=== PATIENT | female | born 1930 | race American Indian/Alaskan Native ===

== ENCOUNTER 2018-02-23 18:45 | Emergency (ER) | payer SELFPAY ==
[2018-02-23] MEDS ORDERED: VANCOMYCIN 1,000 MG in NACL 0.9% 500 ML 500 ML IV ONE (18:54)
[2018-02-23] MEDS ORDERED: NACL 0.9% 1000 ML IV ONE (18:54)
[2018-02-23] MEDS ORDERED: VASELINE LIP THERAPY TP PRN (18:56)
[2018-02-23] MEDS ORDERED: ARTIFICIAL TEARS OPHTH OINT OU PRN (18:56)
[2018-02-23] MEDS ORDERED: ATIVAN IV PRN (18:56)
[2018-02-23] MEDS ORDERED: AMIDATE IV ONE ×2 (18:58→23:00)
[2018-02-23] MEDS ORDERED: TYLENOL PR ONE (18:58)
[2018-02-23] MEDS ORDERED: KEPPRA 1,000 MG/NS 0.75% 100ML 1,000 MG/100 ML BAG IV ONE (18:58)
[2018-02-23] MEDS ORDERED: XYLOCAINE CARDIAC IV ONE ×2 (18:58→23:00)
[2018-02-23] MEDS ORDERED: ZEMURON IV ONE ×2 (18:58→23:00)
--- NOTE | 2018-02-23 18:59 | Emergency Department Report ---
ED General Adult HPI - General Chief complaint: Dyspnea/Respdistress Stated complaint: PEACE Time Seen by Provider: 02/23/18 18:53 Source: EMS (verbal report received from EMS.ems notes not available at time of chart dictation), RN notes reviewed Mode of arrival: Stretcher Limitations: Other - History of Present Illness Initial comments: This is an 87-year-old female who was previously unknown to this provider, who is brought to the hospital by EMS for respiratory failure and seizures. EMS and the patient's subsequently indicated that the patient had no history of seizures. Patient was found to be seizing. She was seizing for at least 20 minutes. EMS reported that they terminate the seizures initially with some Versed. Upon arrival to the ER, the patient is altered, obtunded, has a GCS of 3, pupils are midpoint and not reactive to light has normal Accu-Chek. The patient is intubated for airway protection under the presumption that she is in a status epilepticus algorithm. Postintubation management demonstrated tachycardia, A. fib with RVR, acute renal failure, lactic acidosis and a fever of 100.9. There is no obvious etiologic source of fever demonstrated. The patient was empirically treated with 1 g of Keppra, guarding for hypertensive urgency with a blood pressure in the 200s, and treated empirically for community-acquired meningitis with vancomycin, ceftriaxone, Decadron and acyclovir. Patient was found to have an elevated INR of 1.59 and elevated prothrombin time. Given these parameters, even though the patient is not on systemic anticoagulation as per her , and LP was not performed. The patient is currently intubated and sedated on a fentanyl drip, and heart rate has decreased to 89. Lactic acidosis improved from 8 to 3 and change. There is also some renal insufficiency. This hospital does not have neurology, neurosurgery, or neurology critical care available for consultation. Therefore the patient will be transferred for definitive management and care. This hospital also cannot provide continuous EEG monitoring. The case was discussed with the physician, Dr. Brannon, who is the neurology critical care physician at [facility], and she has accepted the patient as a transfer. -: Sudden Consistency: constant Improves with: none Worsens with: none Associated Symptoms: other (patient is nonverbal and cannot describe other symptoms) - Related Data Allergies Allergy/AdvReac Type Severity Reaction Status Date / Time codeine Allergy Unknown Verified 02/23/18 18:52 ED Review of Systems ROS: Stated complaint: PEACE Other details as noted in HPI Comment: Unobtainable due to pts medical conditions ED Past Medical Hx - Past Medical History Previous Medical History?: Yes Hx Hypertension: Yes Additional medical history: bypass. afib - Social History Smoking Status: Unknown if ever smoked ED Physical Exam - General Limitations: Altered Mental Status, Physical Limitation, Other General appearance: obtunded - Head Head exam: Present: atraumatic, normocephalic - Eye Eye exam: Present: normal appearance, other (pupils are midpoint and poorly reactive to light) - ENT ENT exam: Present: mucous membranes dry - Neck Neck exam: Present: normal inspection. Absent: tenderness, meningismus - Respiratory Respiratory exam: Absent: respiratory distress, wheezes, rales - Cardiovascular Cardiovascular Exam: Present: tachycardia, irregular rhythm, normal heart sounds. Absent: systolic murmur, diastolic murmur, rubs, gallop - GI/Abdominal GI/Abdominal exam: Present: soft, normal bowel sounds. Absent: distended, tenderness, guarding, rebound, rigid, pulsatile mass - Extremities Exam Extremities exam: Present: normal inspection. Absent: tenderness, joint swelling, calf tenderness - Back Exam Back exam: Present: normal inspection. Absent: CVA tenderness (R), paraspinal tenderness, vertebral tenderness - Neurological Exam Neurological exam: Present: altered - Psychiatric Psychiatric exam: Present: other (patient is nonverbal) - Skin Skin exam: Present: warm, dry, intact, normal color. Absent: rash ED Course Vital Signs 02/23/18 02/23/18 02/23/18 18:53 20:06 20:33 Temperature 100.9 F H Pulse Rate 131 H 128 H 86 Respiratory Rate Blood Pressure 102/67 160/103 Blood Pressure 108/73 [Left] O2 Sat by Pulse 100 100 Oximetry 02/23/18 02/23/18 02/23/18 21:05 21:16 21:30 Temperature Pulse Rate 94 H 80 80 Respiratory 16 17 17 Rate Blood Pressure 229/97 229/97 219/112 Blood Pressure [Left] O2 Sat by Pulse Oximetry 02/23/18 02/23/18 02/23/18 21:46 22:00 22:16 Temperature Pulse Rate 76 77 69 Respiratory 17 16 18 Rate Blood Pressure 219/112 153/74 130/66 Blood Pressure [Left] O2 Sat by Pulse 100 100 Oximetry 02/23/18 02/23/18 02/23/18 22:30 22:46 23:00 Temperature Pulse Rate 71 73 75 Respiratory 17 17 16 Rate Blood Pressure 118/68 135/70 Blood Pressure [Left] O2 Sat by Pulse 100 100 100 Oximetry 02/23/18 02/23/18 23:16 23:30 Temperature Pulse Rate 76 73 Respiratory 18 16 Rate Blood Pressure 142/71 132/67 Blood Pressure [Left] O2 Sat by Pulse 100 100 Oximetry - Intubation Time Out Performed: Yes Sedative: Etomidate Mg Given: 20 Paralytic: Rocuronium Mg Given: 100 Laryngoscope: Noé Size: 3 ET Tube Size: 7.5 Tube Secured Location: teeth Tube Placement Confirmation: visualized tube passing t, equal breath sounds bilat, no breath sounds over epi, confirmation by capnometr Patient Tolerated Procedure: well Intubation Complications: none ED Medical Decision Making - Lab Data Result diagrams: 02/23/18 19:15 02/23/18 19:15 Vital Signs 02/23/18 02/23/18 02/23/18 18:53 20:06 20:33 Temperature 100.9 F H Pulse Rate 131 H 128 H 86 Respiratory Rate Blood Pressure 102/67 160/103 Blood Pressure 108/73 [Left] O2 Sat by Pulse 100 100 Oximetry 02/23/18 02/23/18 02/23/18 21:05 21:16 21:30 Temperature Pulse Rate 94 H 80 80 Respiratory 16 17 17 Rate Blood Pressure 229/97 229/97 219/112 Blood Pressure [Left] O2 Sat by Pulse Oximetry 02/23/18 02/23/18 02/23/18 21:46 22:00 22:16 Temperature Pulse Rate 76 77 69 Respiratory 17 16 18 Rate Blood Pressure 219/112 153/74 130/66 Blood Pressure [Left] O2 Sat by Pulse 100 100 Oximetry 02/23/18 22:30 Temperature Pulse Rate 71 Respiratory 17 Rate Blood Pressure 118/68 Blood Pressure [Left] O2 Sat by Pulse 100 Oximetry Lab Results 02/23/18 02/23/18 02/23/18 Range/Units 19:15 19:15 19:15 WBC 8.2 (4.5-11.0) K/mm3 RBC 3.66 (3.65-5.03) M/mm3 Hgb 9.8 L (10.1-14.3) gm/dl Hct 32.6 (30.3-42.9) % MCV 89 (79-97) fl MCH 27 L (28-32) pg MCHC 30 (30-34) % RDW 17.0 H (13.2-15.2) % Plt Count 222 (140-440) K/mm3 Lymph % (Auto) Superintendent Operating Dukes % (Auto) Superintendent Operating Eos % (Auto) Superintendent Operating Baso % (Auto) Superintendent Operating Lymph # Superintendent Operating Dukes # Superintendent Operating Eos # Superintendent Operating Baso # Superintendent Operating Seg Neutrophils % Superintendent Operating Seg Neutrophils # Superintendent Operating PT 19.9 H (12.2-14.9) Sec. INR 1.59 H (0.87-1.13) APTT 34.1 (24.2-36.6) Sec. Thrombin Time 15.5 (15.1-19.6) Sec. POC ABG pH (7.35-7.45) POC ABG pCO2 (35-45) POC ABG pO2 (80-105) POC ABG HCO3 POC ABG Total CO2 POC ABG O2 Sat POC ABG Base Excess FiO2 % Sodium (137-145) mmol/L Potassium (3.6-5.0) mmol/L Chloride (98-107) mmol/L Carbon Dioxide (22-30) mmol/L Anion Gap mmol/L BUN (7-17) mg/dL Creatinine (0.7-1.2) mg/dL Estimated GFR ml/min BUN/Creatinine Ratio % Glucose (65-100) mg/dL Lactic Acid (0.7-2.0) mmol/L Calcium (8.4-10.2) mg/dL Total Bilirubin (0.1-1.2) mg/dL AST (5-40) units/L ALT (7-56) units/L Alkaline Phosphatase (35-129) units/L Total Creatine Kinase 97 (30-135) units/L CK-MB (CK-2) 7.2 H (0.0-4.0) ng/mL CK-MB (CK-2) Rel Index 7.4 H (0-4) Troponin T 0.058 H (0.00-0.029) ng/mL Total Protein (6.3-8.2) g/dL Albumin (3.9-5) g/dL Albumin/Globulin Ratio % Triglycerides 77 (2-149) mg/dL Cholesterol 202 H (50-199) mg/dL LDL Cholesterol Direct 116 (50-130) mg/dL HDL Cholesterol 86 H (40-59) mg/dL Cholesterol/HDL Ratio 2.34 % Urine Color (Yellow) Urine Turbidity (Clear) Urine pH (5.0-7.0) Ur Specific Winn (1.003-1.030) Urine Protein (Negative) mg/dL Urine Glucose (UA) (Negative) mg/dL Urine Ketones (Negative) mg/dL Urine Blood (Negative) Urine Nitrite (Negative) Urine Bilirubin (Negative) Urine Urobilinogen (<2.0) mg/dL Ur Leukocyte Esterase (Negative) Urine WBC (Auto) (0.0-6.0) /HPF Urine RBC (Auto) (0.0-6.0) /HPF U Epithel Cells (Auto) (0-13.0) /HPF Urine Bacteria (Auto) (Negative) /HPF Urine Mucus /HPF Blood Type Antibody Screen 02/23/18 02/23/18 02/23/18 Range/Units 19:15 19:15 19:15 WBC (4.5-11.0) K/mm3 RBC (3.65-5.03) M/mm3 Hgb (10.1-14.3) gm/dl Hct (30.3-42.9) % MCV (79-97) fl MCH (28-32) pg MCHC (30-34) % RDW (13.2-15.2) % Plt Count (140-440) K/mm3 Lymph % (Auto) Dukes % (Auto) Eos % (Auto) Baso % (Auto) Lymph # Dukes # Eos # Baso # Seg Neutrophils % Seg Neutrophils # PT (12.2-14.9) Sec. INR (0.87-1.13) APTT (24.2-36.6) Sec. Thrombin Time (15.1-19.6) Sec. POC ABG pH (7.35-7.45) POC ABG pCO2 (35-45) POC ABG pO2 (80-105) POC ABG HCO3 POC ABG Total CO2 POC ABG O2 Sat POC ABG Base Excess FiO2 % Sodium 137 (137-145) mmol/L Potassium 4.4 (3.6-5.0) mmol/L Chloride 102.0 (98-107) mmol/L Carbon Dioxide 16 L (22-30) mmol/L Anion Gap 23 mmol/L BUN 17 (7-17) mg/dL Creatinine 2.1 H (0.7-1.2) mg/dL Estimated GFR 27 ml/min BUN/Creatinine Ratio 8 % Glucose 159 H (65-100) mg/dL Lactic Acid 8.70 H* (0.7-2.0) mmol/L Calcium 8.3 L (8.4-10.2) mg/dL Total Bilirubin 0.40 (0.1-1.2) mg/dL AST 18 (5-40) units/L ALT 8 (7-56) units/L Alkaline Phosphatase 100 (35-129) units/L Total Creatine Kinase 113 (30-135) units/L CK-MB (CK-2) (0.0-4.0) ng/mL CK-MB (CK-2) Rel Index (0-4) Troponin T (0.00-0.029) ng/mL Total Protein 5.7 L (6.3-8.2) g/dL Albumin 2.8 L (3.9-5) g/dL Albumin/Globulin Ratio 1.0 % Triglycerides (2-149) mg/dL Cholesterol (50-199) mg/dL LDL Cholesterol Direct (50-130) mg/dL HDL Cholesterol (40-59) mg/dL Cholesterol/HDL Ratio % Urine Color (Yellow) Urine Turbidity (Clear) Urine pH (5.0-7.0) Ur Specific Winn (1.003-1.030) Urine Protein (Negative) mg/dL Urine Glucose (UA) (Negative) mg/dL Urine Ketones (Negative) mg/dL Urine Blood (Negative) Urine Nitrite (Negative) Urine Bilirubin (Negative) Urine Urobilinogen (<2.0) mg/dL Ur Leukocyte Esterase (Negative) Urine WBC (Auto) (0.0-6.0) /HPF Urine RBC (Auto) (0.0-6.0) /HPF U Epithel Cells (Auto) (0-13.0) /HPF Urine Bacteria (Auto) (Negative) /HPF Urine Mucus /HPF Blood Type A NEGATIVE Antibody Screen Negative 02/23/18 02/23/18 02/23/18 Range/Units 19:47 19:50 21:38 WBC (4.5-11.0) K/mm3 RBC (3.65-5.03) M/mm3 Hgb (10.1-14.3) gm/dl Hct (30.3-42.9) % MCV (79-97) fl MCH (28-32) pg MCHC (30-34) % RDW (13.2-15.2) % Plt Count (140-440) K/mm3 Lymph % (Auto) Dukes % (Auto) Eos % (Auto) Baso % (Auto) Lymph # Dukes # Eos # Baso # Seg Neutrophils % Seg Neutrophils # PT (12.2-14.9) Sec. INR (0.87-1.13) APTT (24.2-36.6) Sec. Thrombin Time (15.1-19.6) Sec. POC ABG pH 7.444 (7.35-7.45) POC ABG pCO2 29.6 L (35-45) POC ABG pO2 488 H (80-105) POC ABG HCO3 20.3 POC ABG Total CO2 21 POC ABG O2 Sat 100 POC ABG Base Excess -4 FiO2 100 % Sodium (137-145) mmol/L Potassium (3.6-5.0) mmol/L Chloride (98-107) mmol/L Carbon Dioxide (22-30) mmol/L Anion Gap mmol/L BUN (7-17) mg/dL Creatinine (0.7-1.2) mg/dL Estimated GFR ml/min BUN/Creatinine Ratio % Glucose (65-100) mg/dL Lactic Acid 3.90 H* (0.7-2.0) mmol/L Calcium (8.4-10.2) mg/dL Total Bilirubin (0.1-1.2) mg/dL AST (5-40) units/L ALT (7-56) units/L Alkaline Phosphatase (35-129) units/L Total Creatine Kinase (30-135) units/L CK-MB (CK-2) (0.0-4.0) ng/mL CK-MB (CK-2) Rel Index (0-4) Troponin T (0.00-0.029) ng/mL Total Protein (6.3-8.2) g/dL Albumin (3.9-5) g/dL Albumin/Globulin Ratio % Triglycerides (2-149) mg/dL Cholesterol (50-199) mg/dL LDL Cholesterol Direct (50-130) mg/dL HDL Cholesterol (40-59) mg/dL Cholesterol/HDL Ratio % Urine Color Yellow (Yellow) Urine Turbidity Clear (Clear) Urine pH 5.0 (5.0-7.0) Ur Specific Winn 1.016 (1.003-1.030) Urine Protein 30 mg/dl (Negative) mg/dL Urine Glucose (UA) Neg (Negative) mg/dL Urine Ketones Neg (Negative) mg/dL Urine Blood Neg (Negative) Urine Nitrite Neg (Negative) Urine Bilirubin Neg (Negative) Urine Urobilinogen < 2.0 (<2.0) mg/dL Ur Leukocyte Esterase Tr (Negative) Urine WBC (Auto) 5.0 (0.0-6.0) /HPF Urine RBC (Auto) 1.0 (0.0-6.0) /HPF U Epithel Cells (Auto) < 1.0 (0-13.0) /HPF Urine Bacteria (Auto) 2+ (Negative) /HPF Urine Mucus Few /HPF Blood Type Antibody Screen - EKG Data -: EKG Interpreted by Me Rate: tachycardia - EKG Data When compared to previous EKG there are: previous EKG unavailable 02/23/18 23:16 Atrial fibrillation, rapid ventricular response, tachycardic, left axis deviation, QTC prolonged, not a stemi - Radiology Data Radiology results: report reviewed, image reviewed - Medical Decision Making Differential diagnosis, including but not limited to: Status epilepticus, meningitis, hypertensive emergency, renal insufficiency, pneumonia, urinary tract infection Assessment and plan: 87-year-old female with acute febrile illness, lactic acidosis, and the status epilepticus abdomen rhythm with acute renal insufficiency. I suspect that the patient had a seizure which contributed to her lactic acidosis and fever. We cannot perform a spinal tap given INR and elevated prothrombin time. Patient has an emergency medical condition that cannot be definitively managed at this hospital, and requires transfer for definitive care. I explained this extensively to the patient's family. Critical Care Time: Yes Critical care time in (mins) excluding proc time.: 45 Critical care attestation.: If time is entered above; I have spent that time in minutes in the direct care of this critically ill patient, excluding procedure time. ED Disposition Clinical Impression: Status epilepticus, Systemic inflammatory response syndrome, Acute renal insufficiency Disposition: [id number]/[id number]-TRM GEN HOSP IP Is pt being admited?: No Does the pt Need Aspirin: No Condition: Critical Referrals: PRIMARY CARE, [Primary Care Provider] - 3-5 Days
[2018-02-23] MEDS ORDERED: NACL 0.9% 500 ML IV SCH (19:00)
[2018-02-23] MEDS ORDERED: fentaNYL DRIP Premix 2,000 MCG/100 ML BAG IV SCH (19:00)
--- NOTE | 2018-02-23 19:36 | XRay Report ---
FINAL REPORT EXAM: XR CHEST 1V AP HISTORY: ETT placement TECHNIQUE: AP portable view of the chest PRIORS: None. FINDINGS: Lines, tubes, and devices: Median sternotomy wires, and a defibrillator pad overlying the right chest are noted. An endotracheal tube terminates 4 cm above the sally. Lungs and pleura: Trachea is normal in position. Lungs are clear of infiltrate, pleural effusion, vascular congestion, or pneumothorax. Cardiomediastinal silhouette: Heart is enlarged. Calcification of the aortic arch is noted.. Other: Bony structures are intact. IMPRESSION: No acute cardiopulmonary process seen. Cardiomegaly.
--- NOTE | 2018-02-23 19:39 | Cat Scan Report ---
FINAL REPORT EXAM: CT HEAD/BRAIN WO CON HISTORY: Stroke symptoms TECHNIQUE: Standard unenhanced CT of the head at 5.0 millimeter axial increments. PRIORS: None. FINDINGS: There is evidence for a remote area of infarct involving the right posterior parietal and occipital lobe. The ventricular system is normal in size and configuration. There is moderate cerebral atrophy. There is no evidence for mass lesion, mass effect, midline shift, acute intracranial hemorrhage, or acute ischemia/ infarction. No evidence for acute skull fracture is seen. No abnormality in the overlying scalp soft tissues is seen. Visualized paranasal sinuses demonstrate mucosal thickening in the left maxillary sinus. IMPRESSION: Moderate cerebral atrophy. 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 No acute intracranial process noted.
[2018-02-23] MEDS ORDERED: cefTRIAXone 2 GM in NACL 0.9% 20 ML IV ONE (20:00)
[2018-02-23] MEDS ORDERED: VANCOMYCIN/NS 1 GM/250 ML 1 GM/250 ML BAG IV ONE (20:00)
[2018-02-23 20:09] LABS: INR 1.59 (0.87-1.13)
[2018-02-23 20:10] LABS: Partial Thromboplastin Time 34.1 Sec. (24.2-36.6); Thrombin Time 15.5 Sec. (15.1-19.6)
[2018-02-23 20:12] LABS: Mean Corpuscular HGB Conc 30 % (30-34); Mean Corpuscular Hemoglobin 27 pg (28-32); Mean Corpuscular Volume 89 fl (79-97); Platelet Count 222 K/mm3 (140-440); Red Blood Count 3.66 M/mm3 (3.65-5.03)
[2018-02-23 20:13] LABS: Albumin 2.8 g/dL (3.9-5); Calcium 8.3 mg/dL (8.4-10.2)
[2018-02-23 20:16] LABS: Creatine Kinase MB 7.2 ng/mL (0.0-4.0)
[2018-02-23 20:30] LABS: Chol/HDL Ratio 2.34 %
[2018-02-23 20:36] LABS: Hematocrit 32.6 % (30.3-42.9); Hemoglobin 9.8 gm/dl (10.1-14.3)
[2018-02-23 21:06] LABS: Bacteria,Urine 2+ /HPF (Negative); Bilirubin,Urine NEG (Negative); Blood,Urine NEG (Negative); Color,Urine Yellow (Yellow); Mucus,Urine FEW /HPF; Urobilinogen,Urine < 2.0 mg/dL (<2.0)
[2018-02-23] MEDS ORDERED: DECADRON IV ONE (21:51)
[2018-02-23] MEDS ORDERED: ZOVIRAX IV STA (21:51)
[2018-02-23] MEDS ORDERED: NACL 0.9% IV STA (21:51)
[2018-02-23] MEDS ORDERED: CARDENE 50 MG in NACL 0.9% 250ML 230 ML IV SCH (22:00)
[2018-02-23] MEDS ORDERED: ROCEPHIN/NS 2 GM/100 ML 2 GM/100 ML BAG IV SCH (22:00)
[2018-02-23 23:41] VITALS: BP 132/67
[2018-02-24] MEDS ORDERED: cefTRIAXone 2 GM in NACL 0.9% 20 ML IV SCH (10:00)
== END 2018-02-24 01:05 | disposition short-term general hospital (02) ==
LOC: ED 18:45
DX: G40.901 Epilepsy, unspecified, not intractable, with status epilepticus (principal); R65.10 Systemic inflammatory response syndrome (SIRS) of non-infectious origin without acute organ dysfunction; N28.9 Disorder of kidney and ureter, unspecified; I10 Essential (primary) hypertension; Z88.5 Allergy status to narcotic agent
CPT/HCPCS: 31500; 36415; 51702; 70450; 71045; 80053; 80061; 81001; 82140; 82550; 82553; 82803; 84484; 85025; 85610; 85670; 85730; 86850; 86900; 86901; 87040; 87086; 93005; 93010; 96365; 96366; 96367; 96368; 96375; 99291; J0696; J1953; J2001; J3010; J3370; J7030; J7040; J7050; J0133